=== PATIENT | male | born 1975 | race African-American/Black ===

== ENCOUNTER 2021-01-10 09:39 | Emergency (ER) | payer OTHER ==
[~2021-01-10] VITALS: Ht 167.6 cm; Wt 91.0 kg
[2021-01-10] MEDS ORDERED: IBUPROFEN 600MG TABLET PO ONE (10:00)
[2021-01-10] MEDS ORDERED: IBUP-2029 MT (12:19)
[2021-01-10] MEDS ORDERED: KETOROLAC 30MG/ML VIAL IM ONE (13:15)
[2021-01-10 13:38] VITALS: BP 134/90
== END 2021-01-10 13:14 | disposition home or self-care (01) ==
LOC: ER 09:39
DX: M54.5 Low back pain (principal); M25.571 Pain in right ankle and joints of right foot; W01.0XXA Fall on same level from slipping, tripping and stumbling without subsequent striking against object, initial encounter; Y93.89 Activity, other specified; Y92.89 Other specified places as the place of occurrence of the external cause; Y99.0 Civilian activity done for income or pay
CPT/HCPCS: 29515; 72100; 73610; 96372; 99284; J1885